=== PATIENT | female | born 1975 | race Caucasian/White ===

== ENCOUNTER 2017-05-30 21:25 | Inpatient (IN) ==
[2017-05-30] MEDS ORDERED: FLUMAZENIL 1 MG/10 ML VIAL IV STA ×2 (21:37→21:38)
[2017-05-30] MEDS ORDERED: ALBUTEROL NEB SOLN 5 MG/ML 20 ML/BOTTLE CONT NEB STA (21:38)
[2017-05-30] MEDS ORDERED: SODIUM CHLORIDE 0.9% 1,000 ML IV STA (21:38)
[2017-05-30] MEDS ORDERED: FLUMAZENIL 0.5 MG/5 ML VIAL IV ONE (21:39)
--- NOTE | 2017-05-30 21:50 | EKG Report ---
Stationary ECG Study [facility] ER Test Date: 05/30/2017 9:49:14 PM Pat Name: LAZARA SESAY Department: Room: Gender: F Teacher Emotionally Impaired: : 1975 Requested by: Hill Macdonald Order Number: [id number] Reading MD: ZANDER BUTLER Intervals [place] Rate: 77 P: 50 AR: 167 QRS: -3 QRSD: 89 T: 15 QT: 391 QTc: 423 Interpretive Statements SINUS RHYTHM Electronically Signed On 05-31-17 07:33:58 CDT by ZANDER BUTLER [email or web address]
--- NOTE | 2017-05-30 21:54 | Emergency Department Note ---
Arrival - Arrival Chief Complaint: Overdose Stated Complaint: overdose ED Nursing Triage Note: Patient to ED via EMS with c/o calling 911 after having drank 1/2 pint tequila and taking "45" xanax 1 mg tablets. Patient arrives to ED AAOx4, but drowsy and arouses to soft palpation. Patient states she is trying to hurt hersefl because no one cares. PMH of bipolar disorder. Mode of Arrival: Stretcher Limitations: Language Barrier Source: Patient Time Seen by Provider: 05/30/17 21:38 - History of Present Illness HPI Narrative: This 42-year-old white female presents after an unknown timeframe with a history of taking 45 1 mg Xanax and a half of a bottle of tequila because in her own words, I do not want to be me anymore. The patient relates several years of severe depression and thoughts of suicide in the past but never able to follow through with the thoughts until tonight. Currently she is arousable with stimulation and is oriented 3. Onset (ago): unknown Allergies/Adverse Reactions: Allergies Allergy/AdvReac Type Severity Reaction Status Date / Time No Known Allergies Allergy Unverified 05/30/17 21:35 Home Medications: Home Medications Medication Instructions Recorded Confirmed Type Doxycycline Hyclate Cap 100 mg PO BID #20 capsule 11/22/16 Rx [Vibramycin Cap] Promethazine/Dextromethorphan 5 ml PO Q4-6H PRN #120 syrup 11/22/16 Rx [Promethazine-Dm Syrup] methylPREDNISolone DOSEPAK [Medrol 4 mg PO DIRECTED #1 pack 11/22/16 Rx Dosepak] Review of System - Review of System 12 point system: reviewed and no additional remarkable complaints except as stated - Review of System Constitutional: Present: as per HPI Psychiatric: Present: as per HPI Medical,Surgical,& Family Hx - Medical History Cardio: History of: Hypertension Psychological: History of: Anxiety Disorders, Bipolar Disorder Neurology: History of: Migraine (On Topamax, Effexor, Lamictal, Propanolol) - Social History Smoking Status: Never smoker Frequency of Alcohol Use: Unknown Type of Drug Use: Unknown Exam Physical Examination: GENERAL: Obese white in no acute distress. HEENT: Normocephalic. No trauma. Moist mucous membranes. EOMI. PERRLA. ENT NML NECK: Supple. No adenopathy. CARDIAC: Regular. No murmurs. Heart rate 77 CHEST: Clear to auscultation. No respiratory distress. O2 sat 100% ABDOMEN: Soft. Nontender. Active bowel sounds. EXTREMITIES: No trauma. Normal ROM. No pedal edema. SKIN: No diaphoresis. No rash. NEURO: Lethargic but responds to noxious stimuli and responds oriented 3. Motor, sensory, vibratory intact. No focal deficits. Vital Signs: Vital Signs Temperature 98.2 F 05/30/17 21:25 Pulse Rate 76 05/30/17 22:44 Respiratory Rate 16 05/30/17 22:44 Blood Pressure 104/62 05/30/17 21:25 O2 Sat by Pulse Oximetry 100 05/30/17 22:44 Course - Consultations Consultation #1: Discussed with hospitalist service who will admit for further evaluation treatment Results - Labs CBC & BMP: 05/30/17 22:01 05/30/17 22:01 Labs: I have noted the results and their gross normality. - Impressions EKG: Sinus rhythm with normal [place] interval and QRS duration. - Diagnostic Findings Procedure: Chest x-ray: image reviewed by me, report reviewed by me (Normal chest) Disposition Clinical Impression: Tequila/benzo overdose, Suicidal ideation, Depression/bipolar Disposition: Still a Patient Condition: Guarded Time of Disposition: 23:05
[2017-05-30 22:29] LABS: Basophils % 0.3 % (0.0-0.8); Eosinophils # 0.1 10*3/uL (0.0-0.87); Eosinophils % 1.1 % (0.00-10.9); Hematocrit 36.4 VOL% (35.7-47.0); Hemoglobin 12.1 GM/DL (12.0-16.0); Immature Granulocytes % 0.3 %; Immature Granulocytes Absolute 0.03 #; Lymphocytes # 2.5 10*3/uL (1.4-4.0); Lymphocytes % 23.9 % (21.3-54.2); Mean Corpuscular HGB Conc 33.2 GM/DL (32-36); Mean Corpuscular Hemoglobin 31 PG (27-34); Mean Corpuscular Volume 93.3 FL (87-102); Mean Platelet Volume 10.6 FL (9.6-12.0); Monocytes # 0.7 10*3/uL (0.11-0.8); Monocytes % 6.3 % (1.7-12.7); Neutrophils # 7.2 10*3/uL (1.4-7.4); Neutrophils % 68.1 % (38.7-73.9); Platelet Count 236 T/CUMM (130-400); Red Cell Distribution Width 13.2 % (9.3-17.3); White Blood Count 10.6 T/CUMM (4-12)
[2017-05-30 22:56] LABS: Alanine Aminotransferase 15 U/L (13-56); Albumin 3.2 G/DL (3.4-5.0); Alkaline Phosphatase 83 U/L (45-117); Aspartate Amino Transferase 10 U/L (0-37); Bilirubin,Total < 0.39 MG/DL (0.2-1.0); Blood Urea Nitrogen 9 MG/DL (7-18); Calcium 8.2 MG/DL (8.5-10.1); Glucose 87 MG/DL (74-106); Osmolality,Calculated 278.3 MOS/KG (273-304); Potassium 3.4 MMOL/L (3.5-5.1); Sodium 141 MMOL/L (136-145); Total Protein 6.3 G/DL (6.4-8.3); Troponin I Only < 0.015 NG/ML (0.00-0.045)
[2017-05-30 23:01] LABS: Apearance,Urine CLEAR (Clear); Barbiturates Screen,Urine Negative (Negative); Benzodiazepines Screen,Urine Positive (Negative); Bilirubin,Urine Negative (Negative); Blood, Urine Negative (Negative); Cannabinoid Screen,Urine Negative (Negative); Glucose,Urine (UA) Negative (Negative); Ketones,Urine Negative (Negative); Nitrite,Urine Negative (Negative); Opiate Screen,Urine Negative (Negative); Phencyclidine Screen,Urine Negative (Negative); Protein,Urine Negative; Squamous Epithelial Cell,Urine Occasional /HPF (0-10); Urine Color Straw (Yellow); Urine Specific Gravity 1.002 (1.001-1.035); Urine Urobilinogen < 2.0 EU/DL (0.2-1.0)
[2017-05-31] MEDS ORDERED: ACETAMINOPHEN 325 MG TABLET PO PRN (01:30)
[2017-05-31] MEDS ORDERED: ONDANSETRON 4 MG/2 ML VIAL IV PRN (01:30)
[2017-05-31] MEDS ORDERED: DOCUSATE SODIUM 100 MG CAPSULE PO PRN (01:30)
[2017-05-31] MEDS ORDERED: SODIUM CHLORIDE 0.9% 1,000 ML IV ONE (01:30)
[2017-05-31 01:53] LABS: Apearance,Urine CLEAR (Clear); Bilirubin,Urine Negative (Negative); Blood, Urine Negative (Negative); Glucose,Urine (UA) Negative (Negative); Ketones,Urine Negative (Negative); Mucus,Urine Occasional /LPF (Occasional); Nitrite,Urine Negative (Negative); Protein,Urine Negative; Squamous Epithelial Cell,Urine Occasional /HPF (0-10); Urine Color Yellow (Yellow)
[2017-05-31] MEDS: SODIUM CHLORIDE 0.9% 1,000 ML IV SCH ×3 (02:37→16:45)
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
[2017-05-31 05:36] LABS: Basophils % 0.3 % (0.0-0.8); Eosinophils # 0.1 10*3/uL (0.0-0.87); Eosinophils % 1.2 % (0.00-10.9); Hematocrit 35.4 VOL% (35.7-47.0); Hemoglobin 11.4 GM/DL (12.0-16.0); Immature Granulocytes % 0.3 %; Immature Granulocytes Absolute 0.03 #; Lymphocytes # 3.1 10*3/uL (1.4-4.0); Lymphocytes % 30.3 % (21.3-54.2); Mean Corpuscular HGB Conc 32.2 GM/DL (32-36); Mean Corpuscular Hemoglobin 31 PG (27-34); Mean Corpuscular Volume 96.5 FL (87-102); Mean Platelet Volume 11.5 FL (9.6-12.0); Monocytes # 0.8 10*3/uL (0.11-0.8); Monocytes % 7.5 % (1.7-12.7); Neutrophils # 6.1 10*3/uL (1.4-7.4); Neutrophils % 60.4 % (38.7-73.9); Platelet Count 192 T/CUMM (130-400); Red Blood Count 3.67 MC/CUMM (3.8-5.5); Red Cell Distribution Width 13.2 % (9.3-17.3); White Blood Count 10.1 T/CUMM (4-12)
[2017-05-31 06:19] LABS: Bilirubin,Total 0.6 MG/DL (0.2-1.0); Calcium 7.9 MG/DL (8.5-10.1); Osmolality,Calculated 281.8 MOS/KG (273-304); Potassium 3.7 MMOL/L (3.5-5.1); Total Protein 5.6 G/DL (6.4-8.3)
[2017-05-31 06:32] LABS: Acetaminophen 2.6 UG/ML (10-30); Lithium < 0.2 MMOL/L (0.6-1.2); Salicylate < 2.8 MG/DL (2.8-20)
--- NOTE | 2017-05-31 06:34 | XRay Report ---
XR chest 1V portable Indication: Overdose Comparison: 22 November 2016 Findings: The heart and mediastinum are normal in size and configuration. The pulmonary vascularity is normal in caliber. No lung infiltrates, effusions, pneumothorax or other abnormality is demonstrated. Impression: Normal chest x-ray PROCEDURE INTERPRETED AT [facility] DEPARTMENT OF RADIOLOGY Final Report Signed by: Dr. Jori Allen
[2017-05-31 06:38] LABS: Alanine Aminotransferase 12 U/L (13-56); Alkaline Phosphatase 79 U/L (45-117); Aspartate Amino Transferase 14 U/L (0-37); Bilirubin,Direct < 0.100 MG/DL (0.0-0.20); Bilirubin,Indirect 0.3 MG/DL (0.0-1.0); Bilirubin,Total < 0.39 MG/DL (0.2-1.0); Total Protein 5.6 G/DL (6.4-8.3)
[2017-05-31] MEDS ORDERED: PANTOPRAZOLE 40 MG TABLET PO SCH (09:00)
[2017-05-31] MEDS ORDERED: ENOXAPARIN 40 MG/0.4 ML SYRINGE SUBCUT SCH (09:00)
--- NOTE | 2017-05-31 15:07 | Hospitalist Progress Note ---
Assessment and Plan (1) Suicide attempt Status: Acute Assessment and plan: Patient is doing well from a medical stand point. She is medically ready for discharge. Being evaluated by psychiatry. Current Visit: Yes (2) Depression Status: Chronic Current Visit: No (3) Bipolar 1 disorder Status: Chronic Current Visit: No (4) Hypertension Status: Chronic Current Visit: No (5) Overdose Status: Acute Current Visit: Yes Hospitalist: Subjective Interval history: No acute events overnight. Patient denies pain this morning. Exam - Constitutional Vitals: Period Temp Pulse Resp BP Sys/Yanez Pulse Ox Last 24 Hr 97.9 F-98.8 F 62-89 16-26 99-151/50-84 94-100 General appearance: normal weight - Head Head exam: Present: normocephalic, atraumatic - Eye Eye exam: Present: EOMI Pupils: Present: CALLI - ENT ENT exam: Present: normal exam - Neck Neck exam: Present: normal inspection - Respiratory Respiratory exam: Present: clear to auscultation bilaterally. Absent: wheezes - Cardiovascular Cardiovascular exam: Present: regular rate and rhythm - GI/Abdominal GI/Abdominal exam: Present: normal bowel sounds, soft - Extremities Exam Extremities exam: Present: normal inspection - Back Exam Back exam: Present: normal inspection - Neurological Exam Neurological exam: Present: alert, oriented X3 - Psychiatric Psychiatric exam: Present: depressed. Absent: anxious - Skin Skin exam: Present: warm, intact Results - Labs CBC & BMP: 05/31/17 04:14 05/31/17 04:14
--- NOTE | 2017-05-31 16:56 | Discharge Summary ---
<Lily Toledo - Last Filed: 05/31/17 16:47> Hospital Course - Hospital Course Hospital Course: Ms. Matute is a 42 yr old female with a history of bipolar disorder, depression, migranes, and htn that presented to the ED via EMS on 05/30 after having drank 1/ pint of tequilla and taking a reported 45 xanax pills. Per ED physician note, pt stated she wanted to hurt herself. Pt. has a history of very severe depression and suicidal ideation. Pt. was admitted to the hospitalist service for further evaluation and treatment. Pt. had no acute changes overnight. Pt. was accepted by [facility] for placement at their facility. She has been accepted. Labs and vitals are stable. She is medically ready for discharge. Further instructions to follow per Dr. Nguyen. Discharge Plan - Discharge Data Disposition: Disch/Xfer to Psych Hos - Discharge Medications Continue Propranolol Tab [Inderal Tab] 1 tablet PO BID Topiramate 1 tablet PO BID ALPRAZolam [Alprazolam] 0.5 tablet PO TID PRN PRN Reason: Anxiety Meloxicam [Mobic] 1 tablet PO DAILY lamoTRIgine [LaMICtal Tab] 0.5 tablet PO BID Venlafaxine [Effexor] 1 tablet PO BID - Follow Up or Referral - Forms/Instructions Exam - Constitutional Vitals: Period Temp Pulse Resp BP Sys/Yanez Pulse Ox Last 24 Hr 97.9 F-98.8 F 62-89 16-30 99-151/50-84 94-100 Discharge Results Procedures and tests throughout hospitalization: Pending Orders 05/31/17 01:10 MRSA Surveillence, Inf Control Routine 05/31/17 04:14 Topiramate, S Stat Labs on day of discharge: Labs from last 24 hours 05/31/17 05/31/17 05/31/17 04:14 04:14 04:14 WBC 10.1 RBC 3.67 L Hgb 11.4 L Hct 35.4 L MCV 96.5 MCH 31 MCHC 32.2 RDW 13.2 Plt Count 192 MPV 11.5 Neut % (Auto) 60.4 Lymph % (Auto) 30.3 [place] % (Auto) 7.5 Eos % (Auto) 1.2 Baso % (Auto) 0.3 Neut # (Auto) 6.1 Lymph # (Auto) 3.1 [place] # (Auto) 0.8 Eos # (Auto) 0.1 Baso # (Auto) 0.0 Immature Gran % 0.3 Nucleated RBC % 0.0 Immature Gran # 0.03 Nucleated RBCs # 0.00 Immature Plt Fraction 0.0 Sodium 144 Potassium 3.7 Chloride 113 H Carbon Dioxide 21 Anion Gap 13.7 BUN 7 Creatinine 0.70 GFR Calculation 113 BUN/Creatinine Ratio 10.00 Glucose 71 L Calculated Osmolality 281.8 Calcium 7.9 L Total Bilirubin 0.60 Direct Bilirubin Indirect Bilirubin AST 11 ALT 12 L Alkaline Phosphatase 79 Total Creatine Kinase CK-MB (CK-2) Troponin I Total Protein 5.6 L Albumin 3.0 L Globulin 2.6 Albumin/Globulin Ratio 1.1 Urine Color Urine Appearance Urine pH Ur Specific [place] Urine Protein Urine Glucose (UA) Urine Ketones Urine Blood Urine Nitrate Urine Bilirubin Urine Urobilinogen Urine Leukocytes Ur Squamous Epith Cells Urine Mucus Ur Culture Indicated? Salicylates < 2.8 L Urine Opiates Screen Acetaminophen 2.6 L Ur Barbiturates Screen Ur Phencyclidine Scrn U Amphetamine/Methamph U Benzodiazepines Scrn [place] < 0.2 L U Cocaine Metab Screen U Cannabinoids Screen Serum Alcohol 05/31/17 05/31/17 05/30/17 04:14 01:20 22:01 WBC RBC Hgb Hct MCV MCH MCHC RDW Plt Count MPV Neut % (Auto) Lymph % (Auto) [place] % (Auto) Eos % (Auto) Baso % (Auto) Neut # (Auto) Lymph # (Auto) [place] # (Auto) Eos # (Auto) Baso # (Auto) Immature Gran % Nucleated RBC % Immature Gran # Nucleated RBCs # Immature Plt Fraction Sodium 141 Potassium 3.4 L Chloride 110 H Carbon Dioxide 24 Anion Gap 10.4 BUN 9 Creatinine 0.90 GFR Calculation 94 BUN/Creatinine Ratio 10.00 Glucose 87 Calculated Osmolality 278.3 Calcium 8.2 L Total Bilirubin < 0.39 < 0.39 Direct Bilirubin < 0.100 Indirect Bilirubin 0.3 AST 14 10 ALT 12 L 15 Alkaline Phosphatase 79 83 Total Creatine Kinase 41 CK-MB (CK-2) < 1.0 Troponin I < 0.015 Total Protein 5.6 L 6.3 L Albumin 3.0 L 3.2 L Globulin 3.1 Albumin/Globulin Ratio 1.0 L Urine Color Yellow Urine Appearance Clear Urine pH 7.0 Ur Specific [place] 1.010 Urine Protein Negative Urine Glucose (UA) Negative Urine Ketones Negative Urine Blood Negative Urine Nitrate Negative Urine Bilirubin Negative Urine Urobilinogen 2.0 H Urine Leukocytes Negative Ur Squamous Epith Cells Occasional Urine Mucus Occasional Ur Culture Indicated? Not indicated Salicylates Urine Opiates Screen Acetaminophen Ur Barbiturates Screen Ur Phencyclidine Scrn U Amphetamine/Methamph U Benzodiazepines Scrn [place] U Cocaine Metab Screen U Cannabinoids Screen Serum Alcohol < 15 L 24 05/30/17 05/30/17 05/30/17 22:01 17:03 17:03 WBC 10.6 RBC 3.90 Hgb 12.1 Hct 36.4 MCV 93.3 MCH 31 MCHC 33.2 RDW 13.2 Plt Count 236 MPV 10.6 Neut % (Auto) 68.1 Lymph % (Auto) 23.9 [place] % (Auto) 6.3 Eos % (Auto) 1.1 Baso % (Auto) 0.3 Neut # (Auto) 7.2 Lymph # (Auto) 2.5 [place] # (Auto) 0.7 Eos # (Auto) 0.1 Baso # (Auto) 0.0 Immature Gran % 0.3 Nucleated RBC % 0.0 Immature Gran # 0.03 Nucleated RBCs # 0.00 Immature Plt Fraction 0.0 Sodium Potassium Chloride Carbon Dioxide Anion Gap BUN Creatinine GFR Calculation BUN/Creatinine Ratio Glucose Calculated Osmolality Calcium Total Bilirubin Direct Bilirubin Indirect Bilirubin AST ALT Alkaline Phosphatase Total Creatine Kinase CK-MB (CK-2) Troponin I Total Protein Albumin Globulin Albumin/Globulin Ratio Urine Color Straw Urine Appearance Clear Urine pH 7.0 Ur Specific [place] 1.002 Urine Protein Negative Urine Glucose (UA) Negative Urine Ketones Negative Urine Blood Negative Urine Nitrate Negative Urine Bilirubin Negative Urine Urobilinogen < 2.0 H Urine Leukocytes Negative Ur Squamous Epith Cells Occasional Urine Mucus Ur Culture Indicated? Not indicated Salicylates Urine Opiates Screen Negative Acetaminophen Ur Barbiturates Screen Negative Ur Phencyclidine Scrn Negative U Amphetamine/Methamph Negative U Benzodiazepines Scrn Positive H [place] U Cocaine Metab Screen Negative U Cannabinoids Screen Negative Serum Alcohol DS: Provider Date of admission: 05/30/17 23:45 Primary care physician: . No PCP Attending physician on admission: Klaus Rehman MD Consults: 05/31/17 01:30 Consult to Case Mgmt/Social Srvs [CONS] Routine Reason for Case Mgmt/Social Srvs: Discharge Planning Consult Comment: outpatient set up with psych Discharging clinician: Lily Toledo NP <Hermila Nguyen - Last Filed: 05/31/17 16:58> Hospital Course - Time spent with patient Time with patient DS: Less than 30 minutes (25) Diagnosis - Discharge Diagnosis (1) Suicide attempt Status: Acute (2) Depression Status: Chronic (3) Bipolar 1 disorder Status: Chronic (4) Hypertension Status: Chronic (5) Overdose Status: Acute Discharge Plan - Discharge Data Condition at Discharge: Stable Discharge Diet: advance to your usual diet Activity: resume usual activities as tolerated Hygiene: no restrictions Weight Bearing at Discharge: weight bear as tolerated Exam - Constitutional General appearance: normal weight - Head Head exam: Present: normocephalic, atraumatic - Eye Eye exam: Present: EOMI Pupils: Present: CALLI - ENT ENT exam: Present: normal exam - Neck Neck exam: Present: normal inspection - Respiratory Respiratory exam: Present: clear to auscultation bilaterally - Cardiovascular Cardiovascular exam: Present: regular rate and rhythm - GI/Abdominal GI/Abdominal exam: Present: normal bowel sounds, soft. Absent: tenderness, rebound - Extremities Exam Extremities exam: Present: normal inspection - Back Exam Back exam: Present: normal inspection - Neurological Exam Neurological exam: Present: alert, oriented X3 - Psychiatric Psychiatric exam: Present: depressed. Absent: anxious - Skin Skin exam: Present: warm, intact
[2017-05-31 18:40] VITALS: BP 155/77
--- NOTE | 2017-06-01 13:10 | Physician Query Form ---
CLICK EDIT DOCUMENT TO SELECT QUERY ANSWER --> OK --> SIGN Nishi Braxton RN, CCDS Certified Clinical Development Engineer W) [phone] (f) [phone] [email or web address] PROVIDERS: Make your selection(s) from the choices in EACH section by typing an "x" and enter comments in the comment section. Please use your independent medical judgment in providing your response. This request does not imply that any particular answer is desired or expected. CLINICAL INDICATORS: (Providers should not edit this section) Height: 59" Weight: 198# Business Improvement Manager BMI: 40.0 Card Cutter Helper Notes: Business Improvement Manager Recommendations: The medical record indicates that the patient was admitted with an OD, "General appearance: normal weight", "Obese white", BMI of 40.0, Height of 59" and wt. of 198#. If applicable, please provide an associated diagnosis related to the abnormal BMI: BMI of 40 or greater: ( ) Overweight ( x) Obesity ( ) Morbid//Severe Obesity ( ) Obesity with Alveolar Hypoventilation ( ) Weight Gain ( ) BMI is not significant ( ) Other, please specify: ( ) Clinically unable to determine COMMENTS: PLEASE ALSO DOCUMENT RESPONSE IN PROGRESS NOTES AND/OR DISCHARGE SUMMARY Use of terms such as suspected, likely, or probable (associated with a specific diagnosis that is being evaluated, monitored, or treated as if it exists) are acceptable and can be restated in the discharge summary if not ruled out. MTDD
== END 2017-05-31 19:22 | DRG 918 ==
LOC: EDUNIT# → EDBD → N.ED 21:25 → N.EDINP 23:45 → SUATTDRO 23:45 → N.2E 05-31 00:08 → N.ICU 05-31 00:23
PROVIDERS: ADMIT Internal Medicine; ATTEND Internal Medicine